=== PATIENT | male | born 1955 | race Caucasian/White ===

== ENCOUNTER 2022-04-05 11:24 | Emergency (ER) | payer OTHER, MEDICARE, SELFPAY ==
[2022-04-05 12:20] VITALS: BP 141/80; PULSE 63; RESP 16; TEMP 36.5; O2SAT 99
--- NOTE | 2022-04-05 13:26 | ED.URI ---
HPI - URI/Sore Throat General Chief Complaint: Upper Respiratory Infection Stated Complaint: sore throat,cough,chest tightness Time Seen by Provider: 04/05/22 13:27 Source: patient and RN notes reviewed Mode of arrival: ambulatory Limitations: no limitations History of Present Illness HPI Narrative: 66-year-old male presents concern for 3 day history of sore throat, nasal drainage, postnasal drainage, cough. Reports chest congestion. Reports he is taking Mucinex max with helps with his symptoms. Reports his had similar symptoms earlier in the week and tested negative for COVID. MD elicited complaint: cough Related Data Home Medications Medication Instructions Recorded Confirmed multivit,Ca,min-iron 8 mg-folic 1 tablet PO DAILY 10/24/21 04/05/22 acid 200 mcg-lycopene 600 mcg tablet (Centrum Men) omega-3 417 mg-dha 120 mg-epa-276 1 cap PO DAILY 10/24/21 04/05/22 mg-fish oil 600 mg-tumeric capsule clotrimazole-betamethasone 1 1 applic topical DIRECTED 04/05/22 04/05/22 %-0.05 % topical cream meloxicam 15 mg tablet 15 mg PO DIRECTED 04/05/22 04/05/22 Allergies Allergy/AdvReac Type Severity Reaction Status Date / Time Penicillins Allergy Mild Hives / Verified 04/05/22 13:13 Red Face erythromycin base Allergy Unknown Nausea and Verified 04/05/22 13:13 Vomiting Review of Systems Review of Systems: CONSTITUTIONAL: Reports malaise. Denies chills, sweats, or fever. EYES: Denies visual changes, redness, or discharge. ENT: Reports rhinorrhea, congestion, sore throat. Denies sinus pain, otalgia CARDIOVASCULAR: Denies chest pain, palpitations, or edema. RESPIRATORY: Reports cough and chest congestion. Denies dyspnea. GASTROINTESTINAL: Denies abdominal pain, nausea, vomiting, diarrhea SKIN: Denies rash or itching. MUSCULOSKELETAL: Denies myalgia. NEUROLOGIC: Denies headache. All systems reviewed & are unremarkable except as noted in HPI and below PMFSH Family History Family History Father Cancer Mother Cancer Social History Social History Smoking status: Never smoker Alcohol intake: never Substance use: never Comments At time of signature, agree with nursing past medical, surgical, social and family history. There is no relevant family history pertinent to the presenting complaint Exam Narrative: GENERAL: Nontoxic-appearing and in no acute distress. HEAD: Normocephalic EYES: PERRLA, conjunctivae clear ENT: Nares clear, turbinates edematous and erythematous, clear discharge. Mucous membranes moist. TM pearly zarate with sharp light reflex bilaterally; no tragal tenderness. Oropharynx not erythematous without lesions. Tonsils not enlarged and without exudate, no drooling, no hoarseness, no trismus, uvula midline. NECK: Supple. No lymphadenopathy CHEST: Clear to auscultation, breath sounds equal. No wheezing, rhonchi, rales, or stridor. No respiratory distress, speaks in full sentences. HEART: Regular rate and rhythm. No murmur heard. SKIN: Warm, dry, no rash. NEURO: Alert and oriented x3. PSYCH: Normal mood and affect Course Course Emergency Course: Patient is aware of diagnosis, understands and agrees to treatment plan. Anticipatory guidance given. Patient agrees to follow-up as directed and is aware of reasons to seek care at the emergency department. Portions of this record may have been created with voice recognition software Level of Care: Express Care Visit Vital Signs Vital signs: Vital Signs Temperature 97.7 F 04/05/22 12:20 Pulse Rate 63 04/05/22 12:20 Respiratory Rate 16 04/05/22 12:20 Blood Pressure 141/80 H 04/05/22 12:20 Pulse Oximetry 99 04/05/22 12:20 Temperature 97.7 F 04/05/22 12:20 Pulse Rate 63 04/05/22 12:20 Respiratory Rate 16 04/05/22 12:20 Blood Pressure 141/80 H 04/05/22 12:20 Pulse Oximetry 99 11
== END 2022-04-05 13:51 | disposition home or self-care (01) ==
PROVIDERS: Emergency Provider Nurse Practitioner; PCP Family Medicine
DX: J06.9 Acute upper respiratory infection, unspecified (principal); R05.9 Cough, unspecified; Z85.038 Personal history of other malignant neoplasm of large intestine; Z92.21 Personal history of antineoplastic chemotherapy
CPT/HCPCS: 87804; 99213; G0463

== ENCOUNTER 2023-01-10 13:08 | Outpatient (CLI) | payer OTHER, MEDICARE, SELFPAY | END 2023-01-10 13:09 | disposition home or self-care (01) | LOC: ANHAUDASC 13:09 | PROVIDERS: PCP Family Medicine; Visit Provider Family Medicine | DX: H90.42 Sensorineural hearing loss, unilateral, left ear, with unrestricted hearing on the contralateral side (principal); H90.11 Conductive hearing loss, unilateral, right ear, with unrestricted hearing on the contralateral side | CPT/HCPCS: 92557; 92567 ==

== ENCOUNTER 2023-02-13 00:22 | Day surgery (SDC) | payer OTHER, MEDICARE, SELFPAY ==
[2023-02-04 12:50] VITALS: BMI 29.6
--- NOTE | 2023-02-12 14:37 | PM.HPGS ---
History of Present Illness History of Present Illness Consent: Risks, benefits, and alternatives have been discussed and questions answered. Patient agrees to proceed with procedure. Chief complaint: hx colon ca Narrative: Obdulio Carreno is a 67 year old male With a history of colon cancer. He is here for colon cancer screening. His last colonoscopy was 5 years ago. Review of Systems Review of Systems: All systems reviewed & are unremarkable except as noted in HPI and below PMFSH Family History Family History Father Cancer Mother Cancer Social History Social History Smoking status: Never smoker Alcohol intake: never Substance use: never Substance use type: does not use Living arrangements: with family Spiritual care concerns: No Meds Home Medications and Allergies Home Medications Medication Instructions Recorded Confirmed Type multivit,Ca,min-iron 8 mg-folic 1 tablet PO DAILY 10/24/21 02/13/23 History acid 200 mcg-lycopene 600 mcg tablet (Centrum Men) omega-3 417 mg-dha 120 mg-epa-276 1 cap PO DAILY 10/24/21 02/13/23 History mg-fish oil 600 mg-tumeric capsule clotrimazole-betamethasone 1 1 applic topical DIRECTED 04/05/22 02/13/23 History %-0.05 % topical cream meloxicam 15 mg tablet 15 mg PO DIRECTED 04/05/22 02/13/23 History Allergies Allergy/AdvReac Type Severity Reaction Status Date / Time Penicillins Allergy Mild Hives / Verified 02/13/23 06:48 Red Face erythromycin base Allergy Unknown Nausea and Verified 02/13/23 06:48 Vomiting Exam Const: General: alert Orientation/consciousness: patient oriented x3 Resp: Auscultation: clear to auscultation bilaterally Cardio: Rhythm: regular rhythm GI: GI Palp: Yes Soft to palpation and No Tenderness to palpation present (GI) Neuro: General: patient oriented x3 Assessment and Plan Assessment and plan (1) Colon cancer screening: Code(s): Z12.11 - Encounter for screening for malignant neoplasm of colon Status: Acute Assessment and Plan: Colonoscopy with possible biopsy or polypectomy or cautery or injection of substances.
[2023-02-13 06:49] VITALS: BP 110/80; PULSE 58; RESP 16; TEMP 36.2; O2SAT 98; BMI 29.5
[2023-02-13] MEDS: LACTATED RINGERS 1,000 ML 150 ML IV CONT (07:02)
--- NOTE | 2023-02-13 07:55 | WPDANESEPPF ---
Anes - Initial Pre Proc Eval Procedure: Operation Date: 02/13/23 08:00 Proposed Procedures p Colonoscopy - Fabrizio Abbott MD Date/Time: 02/13/23 07:55 Surgeon: Fabrizio Abbott MD Pre Op Diagnosis: hx colon ca Patient Data Age: 67 Gender: M Height: 1.73 m Weight: 88 kg Last Vital Signs Temp 97.2 F L 02/13/23 06:49 Pulse 58 L 02/13/23 06:49 Resp 16 02/13/23 06:49 BP 110/80 02/13/23 06:49 Pulse Ox 98 02/13/23 06:49 O2 Del Method Room Air 02/13/23 06:49 Allergies Allergy/AdvReac Type Severity Reaction Status Date / Time Penicillins Allergy Mild Hives / Verified 02/13/23 06:48 Red Face erythromycin base Allergy Unknown Nausea and Verified 02/13/23 06:48 Vomiting Home Medications Medication Instructions Recorded Confirmed Type multivit,Ca,min-iron 8 mg-folic 1 tablet PO DAILY 10/24/21 02/13/23 History acid 200 mcg-lycopene 600 mcg tablet (Centrum Men) omega-3 417 mg-dha 120 mg-epa-276 1 cap PO DAILY 10/24/21 02/13/23 History mg-fish oil 600 mg-tumeric capsule clotrimazole-betamethasone 1 1 applic topical DIRECTED 04/05/22 02/13/23 History %-0.05 % topical cream meloxicam 15 mg tablet 15 mg PO DIRECTED 04/05/22 02/13/23 History Patient hx anesthesia problems: none Family hx anesthesia problems: none Results Review: All pre-operative results and documents have been reviewed as part of the pre-operative evaluation. [facility] Family History Family History Father Cancer Mother Cancer Social History Social History Smoking status: Never smoker Alcohol intake: never Substance use: never Substance use type: does not use Living arrangements: with family Spiritual care concerns: No Anes - Eval Final PreProcedure Day of Procedure 02/13/23 07:55 Patient weight: normal Heart: regular rate and rhythm Lungs: clear to auscultation Airway: Mallampati scale class II Neurological: alert and oriented Last oral intake: >/= 8 hours ASA classification: II Emergent: no Anesthetic plan: proceed Anesthesia type and monitoring: general GIVS and standard monitoring Results Review: All pre-operative results and documents have been reviewed as part of the pre-operative evaluation. Informed Consent: The patient's anesthetic plan and its attendant risks and benefits were discussed with the patient/family/POA. Questions were solicited and answers provided to the satisfaction of the patient/family/POA.
[2023-02-13 08:16] VITALS: BP 109/67; PULSE 57; RESP 18; O2SAT 94
[2023-02-13 08:26] VITALS: BP 128/78; PULSE 55; RESP 20; O2SAT 96
[2023-02-13 08:36] VITALS: BP 125/84; PULSE 56; RESP 16; O2SAT 97
== END 2023-02-13 08:50 | disposition home or self-care (01) ==
PROVIDERS: PCP Family Medicine; Visit Provider Internal Medicine Gastroenterology
PROC: 0DJD8ZZ Inspection of Lower Intestinal Tract, Via Natural or Artificial Opening Endoscopic (ICD-10-PCS; CPT 45378; principal; 2023-02-13 08:00)
DX: Z12.11 Encounter for screening for malignant neoplasm of colon (principal); K64.8 Other hemorrhoids; Z98.0 Intestinal bypass and anastomosis status; Z85.038 Personal history of other malignant neoplasm of large intestine; Z86.010 Personal history of colon polyps
CPT/HCPCS: G0105; J2704; J7120

== ENCOUNTER 2023-03-12 15:00 | Outpatient (RCR) | payer OTHER, MEDICARE, SELFPAY | END 2023-04-28 10:40 | disposition other institution (70) | LOC: ANHAUDASC 15:00 | PROVIDERS: PCP Family Medicine; Visit Provider Family Medicine | DX: Z46.1 Encounter for fitting and adjustment of hearing aid (principal) | CPT/HCPCS: 99199; V5261 ==

== ENCOUNTER 2023-08-05 08:05 | Emergency (ER) | payer OTHER, MEDICARE, SELFPAY ==
[2023-08-05 08:13] VITALS: BP 148/79; PULSE 76; RESP 16; TEMP 36.9; O2SAT 100
--- NOTE | 2023-08-05 08:16 | ED.URI ---
HPI - URI/Sore Throat General Stated Complaint: Cold Symptoms Time Seen by Provider: 08/05/23 08:16 Source: patient and RN notes reviewed Mode of arrival: ambulatory Limitations: no limitations History of Present Illness HPI Narrative: 67 y/o male presented for c/o sinus congestion, drainage, and cough with hoarse voice for about 10 days. Taking cetirizine and Mucinex for symptoms. Denies sob, wheezing, n/v/d/f/c. MD elicited complaint: cough Related Data Home Medications Medication Instructions Recorded Confirmed multivit,Ca,min-iron 8 mg-folic 1 tablet PO DAILY 10/24/21 02/13/23 acid 200 mcg-lycopene 600 mcg tablet (Centrum Men) omega-3 417 mg-dha 120 mg-epa-276 1 cap PO DAILY 10/24/21 02/13/23 mg-fish oil 600 mg-turmeric capsule clotrimazole-betamethasone 1 1 applic topical DIRECTED 04/05/22 02/13/23 %-0.05 % topical cream meloxicam 15 mg tablet 15 mg PO DIRECTED 04/05/22 02/13/23 Allergies Allergy/AdvReac Type Severity Reaction Status Date / Time Penicillins Allergy Mild Hives / Verified 02/13/23 06:48 Red Face erythromycin base Allergy Unknown Nausea and Verified 02/13/23 06:48 Vomiting Review of Systems Review of Systems: CONSTITUTIONAL: Denies malaise, chills, sweats, fever EYES: Denies visual changes, redness, or discharge ENT: Reports rhinorrhea, congestion, sinus pain, denies otalgia, sore throat CARDIOVASCULAR: Denies chest pain, palpitations, edema RESPIRATORY: Reports cough, post nasal drainage. Denies dyspnea GASTROINTESTINAL: Denies abdominal pain, nausea, vomiting, diarrhea SKIN: Denies rash or itching MUSCULOSKELETAL: Denies myalgia COUNT INCLUDES THE [facility] Past Medical History Medical History (Updated 08/05/23 @ 08:40 by Nina Wray APRN) Colon cancer Surgical History Surgical History (Updated 08/05/23 @ 08:40 by Nina Wray APRN) History of colon surgery Family History Family History Father Cancer Mother Cancer Social History Social History (Reviewed 08/05/23 @ 08:39 by SEBASTIÁN Sams Smoking status: Never smoker Alcohol intake: never Substance use: never Substance use type: does not use Living arrangements: with family Spiritual care concerns: No Exam Narrative: GENERAL: well-appearing, nontoxic no acute distress. HEAD: Normocephalic EYES: PERRLA, conjunctivae clear ENT: Mucous membranes moist. TM pearly zarate with dull light reflex bilaterally; no tragal tenderness. Hoarse voice. Oropharynx not erythematous without lesions or exudate, no drooling, no trismus, uvula midline. No tripod positioning, muffled voice, soft palate or pharyngeal wall bulging NECK: Supple. No lymphadenopathy CHEST: Clear to auscultation, breath sounds equal. No wheezing, rhonchi, rales, or stridor. No respiratory distress, speaks in full sentences. HEART: Regular rate and rhythm. No murmur heard. SKIN: Warm, dry, no rash. NEURO: Alert and oriented x3. PSYCH: Normal mood and affect Course Course Emergency Course: Patient is aware of diagnosis, understands and agrees to treatment plan. Anticipatory guidance given. Patient agrees to follow-up as directed and is aware of reasons to seek care at the emergency department. Portions of this record may have been created with voice recognition software Level of Care: Express Care Visit Vital Signs Vital signs: Vital Signs Temperature 98.4 F 08/05/23 08:13 Pulse Rate 76 08/05/23 08:13 Respiratory Rate 16 08/05/23 08:13 Blood Pressure 148/79 H 08/05/23 08:13 Pulse Oximetry 100 08/05/23 08:13 Oxygen Delivery Room Air 08/05/23 08:13 Temperature 98.4 F 08/05/23 08:13 Pulse Rate 76 08/05/23 08:13 Respiratory Rate 16 08/05/23 08:13 Blood Pressure 148/79 H 08/05/23 08:13 Pulse Oximetry 100 08/05/23 08:13 Oxygen Delivery Room Air 08/05/23 08:13 reviewed MDM - URI/Sore Throat MDM Narrative Medic
== END 2023-08-05 08:35 | disposition home or self-care (01) ==
PROVIDERS: Emergency Provider Nurse Practitioner Family; PCP Family Medicine
DX: J06.9 Acute upper respiratory infection, unspecified (principal); Z85.038 Personal history of other malignant neoplasm of large intestine
CPT/HCPCS: 99213; G0463

== ENCOUNTER 2024-02-20 08:14 | Emergency (ER) | payer OTHER, MEDICARE, SELFPAY ==
[2024-02-20 08:35] VITALS: BP 126/78; PULSE 67; RESP 16; TEMP 36.6; O2SAT 97
--- NOTE | 2024-02-20 08:49 | ED.SKABFB ---
HPI - Skin/Abscess/Foreign Bdy General Chief complaint: Skin/Abscess/Foreign Body Stated complaint: rash Time Seen by Provider: 02/20/24 08:50 Source: patient Mode of arrival: ambulatory Limitations: no limitations History of Present Illness HPI narrative: 68-year-old male presented for complaint of rash to the right buttock which has been present intermittently for over 1 year. He uses clotrimazole betamethasone cream which provides temporary improvement in symptoms. 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 Denies lip, tongue, or throat swelling, shortness of breath or wheezing. Denies changes to soap, detergent, lotion, or any other exposures. No one else in the house or any contacts with similar symptoms. Related Data Home Medications Medication Instructions Recorded Confirmed clotrimazole-betamethasone 1 1 applic topical DIRECTED 04/05/22 02/20/24 %-0.05 % topical cream Allergies Allergy/AdvReac Type Severity Reaction Status Date / Time Penicillins Allergy Mild Hives / Verified 08/05/23 09:06 Red Face erythromycin base Allergy Unknown Nausea and Verified 08/05/23 09:06 Vomiting Review of Systems Review of Systems: CONSTITUTIONAL: Denies body aches, fever, chills, or sweats. EYES: Denies visual changes, redness, or discharge. ENT: Denies rhinorrhea, congestion CARDIOVASCULAR: Denies chest pain, palpitations, or edema. RESPIRATORY: Denies cough or dyspnea. GASTROINTESTINAL: Denies abdominal pain, nausea, vomiting, or diarrhea. SKIN: reports intermittent rash right buttock MUSCULOSKELETAL: Denies back pain, joint pain, or myalgia. NEUROLOGIC: Denies headache, numbness, tingling, or weakness. [facility] Past Medical History Medical History Colon cancer Surgical History Surgical History History of colon surgery Family History Family History Father Cancer Mother Cancer Social History Social History Smoking status: Never smoker Alcohol intake: never Substance use: never Substance use type: does not use Living arrangements: with family Spiritual care concerns: No Comments At time of signature, I have reviewed and agree with nursing past medical, surgical, social and family history unless otherwise noted. Please see nursing chart for further information. There is no relevant family history pertinent to the presenting complaint Exam Narrative: GENERAL: Well-appearing ENT: Mucous membranes moist. Oropharynx without edema, erythema or lesions. NECK: Supple. CHEST: Clear to auscultation. HEART: Regular rate and rhythm. SKIN: Warm, dry. Scattered erythematous round,flat, dry lesions noted to right buttock and upper posterior thigh, and medial left buttock; most lesions <0.5cm no drainage, nontender. NEURO: Alert and oriented x3. Course Course Emergency Course: Patient is aware of diagnosis, understands and agrees to treatment plan. Anticipatory guidance given. Patient agrees to follow-up as directed and is aware of reasons to seek care at the emergency department. Portions of this record may have been created with voice recognition software Level of Care: Express Care Visit Vital Signs Vital signs: Vital Signs Temperature 97.9 F 02/20/24 08:35 Pulse Rate 67 02/20/24 08:35 Respiratory Rate 16 02/20/24 08:35 Blood Pressure 126/78 02/20/24 08:35 Pulse Oximetry 97 02/20/24 08:35 Temperature 97.9 F 02/20/24 08:35 Pulse Rate 67 02/20/24 08:35 Respiratory Rate 16 02/20/24 08:35 Blood Pressure 126/78 02/20/24 08:35 Pulse Oximetry 97 02/20/24 08:35 Reviewed MDM - Skin/Abscess/Foreign Bdy MDM Narrative Medical decision making narrative: Discussed physical exam findings, will refill his previously pre
== END 2024-02-20 09:07 | disposition home or self-care (01) ==
PROVIDERS: Emergency Provider Nurse Practitioner Family
DX: L30.9 Dermatitis, unspecified (principal); Z85.038 Personal history of other malignant neoplasm of large intestine
CPT/HCPCS: 99213; G0463

== ENCOUNTER 2024-03-27 10:34 | Emergency (ER) | payer OTHER, MEDICARE, SELFPAY ==
--- NOTE | ~2024-03-27 | CT_ITS ---
EXAMINATION: CT abdomen pelvis w con DATE: 03/27/2024 11:51 INDICATION: Midline low abdominal pain. TECHNIQUE: Computed tomography (CT) of the abdomen and pelvis was performed with 100 mL Omnipaque 350 intravenous contrast. Automated exposure control and iterative reconstruction technique were employe d. The dose-length product was 589.06 mGy-cm. COMPARISON: None. FINDINGS: The visualized portions of the lung bases demonstrate mild atelectasis. No pleural effusion . The heart size is normal. No pericardial effusion. The liver, gallbladder, spleen, pancreas, adrena l glands, and kidneys are normal. The prostate is moderately enlarged. There is a left inguinal herni a containing fat. There are changes of right hemicolectomy. There are no dilated loops of bowel. Ther e are no pathologically enlarged lymph nodes. There is no free intraperitoneal fluid. There is mild l umbar spondylosis. IMPRESSION: 1. Left inguinal hernia containing fat. Reviewed, dictated and finalized at location A. FAMILY
[2024-03-27 10:37] VITALS: BP 176/72; PULSE 63; RESP 16; TEMP 35.8; O2SAT 99
--- NOTE | 2024-03-27 10:49 | PC.NURSE ---
Patient unable to get urine sample at this time, declines straight cath and reports that he will attempt later.
[2024-03-27 10:52] LABS: Basophils Absolute Auto 0.1 K/mm3 (0.0-0.1); Basophils Percent Auto 0.7 % (0.2-1.2); Eosinophils Absolute Auto 0.1 K/mm3 (0-0.3); Eosinophils Percent Auto 0.8 % (0-4.4); Hemoglobin 15.5 g/dL (14.0-18.0); Immature Granulocyte Absolute 0.01 K/mm3 (0.00-0.031); Immature Granulocyte Percent A 0.1 % (0-0.5); Lymphocytes Absolute Auto 2.88 K/mm3 (0.9-3.2); Lymphocytes Percent Auto 39.8 % (18.3-44.2); Mean Corpuscular Hemoglobin 27.3 pg (26-34); Mean Corpuscular Volume 82.7 fl (80-100); Mean Platelet Volume 10.5 fl (7.4-10.4); Monocytes Absolute Auto 0.7 K/mm3 (0.1-0.6); Monocytes Percent Auto 9.1 % (2.6-8.5); Neutrophils Absolute Auto 3.6 K/mm3 (1.3-6.7); Neutrophils Percent Auto 49.5 % (45.5-73.1); Platelet Count Result 231 k/mm3 (150-375); Red Blood Count 5.68 M/mm3 (4.6-6.20); Red Cell Distribution Width 13.6 % (11.5-14.5); White Blood Count 7.2 K/mm3 (4.5-10.0)
[2024-03-27 11:01] LABS: Alanine Aminotransferase 27 U/L (6-50); Albumin Level 4.6 g/dL (3.5-5.1); Alkaline Phosphatase 55 U/L (38-126); Anion Gap 9 mmol/L (4-12); Aspartate Amino Transferase 40 U/L (17-59); Bilirubin,Total 1.3 mg/dL (0.2-1.3); Blood Urea Nitrogen 24 mg/dL (9-20); Calcium 9.2 mg/dL (8.4-10.2); Carbon Dioxide 30 mmol/L (22-30); Chloride 102 mmol/L (98-107); Estimated CRCL calculation 67 ml/min; Estimated Glomerular Filt Rate > 60; Glucose 97 mg/dL (65-110); Lipase 64 U/L (23-300); Potassium 4.5 mmol/L (3.4-5.0); Sodium 141 mmol/L (137-145)
[2024-03-27 11:42] LABS: Add Urine Microscopic? NO; Appearance Urine Clear (Clear); Bilirubin Urine Negative (Negative); Blood Urine Negative (Negative); Color Urine Yellow (Yellow); Glucose Urine UA Negative (Negative); Ketones Urine Negative (Negative); Leukocyte Esterase Ur Negative LEU/UL (Negative); Nitrate Urine Negative (Negative); Protein Urine Negative (Negative); Urobilinogen Urine 0.2 mg/dL (<2.0); pH Urine 5.5 (5.0-9.0)
--- NOTE | 2024-03-27 12:47 | ED_ITS ---
HPI - Abdominal Pain General Chief Complaint: Abdominal Pain Stated Complaint: pain abdomen, medial lower Time Seen by Provider: 03/27/24 10:47 History of Present Illness HPI narrative: Patient is a 68-year-old male who presents ER with lower abdominal pain. He is doing a sit-up last night when he had a tearing pain for 20 seconds. It is at the lower aspect of his laparotomy scar. No numbness or tingling. No difficulty with bowel movements. He is concerned he may have a hernia. Related Data Home Medications Medication Instructions Recorded Confirmed clotrimazole-betamethasone 1 1 applic topical DIRECTED 04/05/22 02/20/24 %-0.05 % topical cream Allergies Allergy/AdvReac Type Severity Reaction Status Date / Time Penicillins Allergy Mild Hives / Verified 03/27/24 10:35 Red Face erythromycin base Allergy Unknown Nausea and Verified 03/27/24 10:35 Vomiting Review of Systems Review of Systems: All systems reviewed & are unremarkable except as noted in HPI and below Constitutional: Constitutional: Reports no additional constitutional complaints Cardiovascular: Cardiovascular: Reports no additional cardiovascular complaints Respiratory: Respiratory: Reports no additional respiratory complaints Gastrointestinal: Gastrointestinal: Reports abdominal pain, Denies diarrhea, Denies nausea and Denies vomiting Genitourinary: Genitourinary: Reports no additional male genitourinary complaints [facility] Past Medical History Medical History Colon cancer Surgical History Surgical History History of colon surgery Family History Family History Father Cancer Mother Cancer Social History Social History Smoking status: Never smoker Alcohol intake: never Substance use: never Substance use type: does not use Living arrangements: with family Spiritual care concerns: No Exam Narrative: GENERAL: Well-appearing, well-nourished, and in no acute distress. HEAD: Normocephalic, atraumatic. ENT: Mucous membranes moist. CHEST: Clear to auscultation. No respiratory distress. HEART: Regular rate and rhythm. Normal peripheral pulses. ABDOMEN: Soft, nontender, nondistended. EXTREMITIES: Normal range of motion. No edema. SKIN: Warm, dry, no rash. NEURO: Alert and oriented x3. PSYCH: Normal mood and affect. Course Course Emergency Course: Patient resting comfortably. Informed of results. Discharge home. Vital Signs Vital signs: Vital Signs Temperature 96.5 F L 03/27/24 10:37 Pulse Rate 63 03/27/24 10:37 Respiratory Rate 16 03/27/24 10:37 Blood Pressure 176/72 H 03/27/24 10:37 Pulse Oximetry 99 03/27/24 10:37 Oxygen Delivery Room Air 03/27/24 10:37 Temperature 96.5 F L 03/27/24 10:37 Pulse Rate 63 03/27/24 10:37 Respiratory Rate 16 03/27/24 10:37 Blood Pressure 176/72 H 03/27/24 10:37 Pulse Oximetry 99 03/27/24 10:37 Oxygen Delivery Room Air 03/27/24 10:37 MDM - Abdominal Pain Lab Data 03/27/24 10:47 03/27/24 10:47 Labs: Lab Results 03/27/24 03/27/24 Range/Units 10:47 11:37 WBC 7.2 (4.5-10.0) K/mm3 RBC 5.68 (4.6-6.20) M/mm3 Hgb 15.5 (14.0-18.0) g/dL Hct 47.0 (42.0-52.0) % MCV 82.7 (80-100) fl MCH 27.3 (26-34) pg MCHC 33.0 (32-36) g/dl RDW 13.6 (11.5-14.5) % Plt Count 231 (150-375) k/mm3 MPV 10.5 H (7.4-10.4) fl Immature Gran % (Auto) 0.1 (0-0.5) % Neut % (Auto) 49.5 (45.5-73.1) % Lymph % (Auto) 39.8 (18.3-44.2) % [place] % (Auto) 9.1 H (2.6-8.5) % Eos % (Auto) 0.8 (0-4.4) % Baso % (Auto) 0.7 (0.2-1.2) % Lymph # (Auto) 2.88 (0.9-3.2) K/mm3 [place] # (Auto) 0.7 H (0.1-0.6) K/mm3 Eos # (Auto) 0.1 (0-0.3) K/mm3 Baso # (Auto) 0.1 (0.0-0.1) K/mm3 Abs Immat Gran (auto) 0.01 (0.00-0.031) K/mm3 Absolute Neuts (auto) 3.6 (1.3-6.7) K/mm3 Absolute Nucleated RBC 0.000 (0.0-0.012) K/mm3 Nucleated RBC % 0.0 (0.0-0.2) % Sodium 141 (137-145) mmol/L Potassium 4.5 (3.4-5.0) mmol/L Chloride 102 (98-107) mmol/L Carbon Dioxide 30 (22-30) mmol/L Anion Gap 9 (4-12) mmol/L BUN 24 H (9-20) mg/dL Creatinine 1.00 (0.7-1.3) mg/dL Estim Creat Clear Calc 67 ml/min Estimated GFR > 60 (59 - ) Glucose 97 (65-110) mg/dL Calcium 9.2 (8.4-10.2) mg/dL Total Bilirubin 1.3 (0.2-1.3) mg/dL AST 40 (17-59) U/L ALT 27 (6-50) U/L Alkaline Phosphatase 55 (38-126) U/L Total Protein 8.0 (6.3-8.2) g/dL Albumin 4.6 (3.5-5.1) g/dL Lipase 64 (23-300) U/L Urine Color Yellow (Yellow) Urine Appearance Clear (Clear) Urine pH 5.5 (5.0-9.0) Ur Specific [place] 1.020 (1.001-1.035) Urine Protein Negative (Negative) mg/dL Urine Glucose (UA) Negative (Negative) mg/dL Urine Ketones Negative (Negative) mg/dL Ur Blood (Man) Negative (Negative) Urine Nitrate Negative (Negative) Urine Bilirubin Negative (Negative) Urine Urobilinogen 0.2 (<2.0) mg/dL Leukocyte Esterase Rfl Negative (Negative) DHRUV/UL Imaging Data Radiologist's impression: ITS Impressions Abdomen/Pelvis CT 03/27/24 11:53 IMPRESSION: 1. Left inguinal hernia containing fat. Discharge Plan Discharge Clinical Impression: Hernia, inguinal, left Patient Disposition: Home, Self-Care Condition: Stable Instructions: Inguinal Hernia (ED) Additional Instructions: You have a small fat containing inguinal hernia on the left side. If it causes increased pain or discomfort you may want to have it surgically repaired. Prescriptions: No Action clotrimazole-betamethasone 1-0.05 % cream 1 applic topical BID 28 Days Qty: 45 0RF Rx Instructions: Continue using the cream for one week after symptoms resolve. clotrimazole-betamethasone 1-0.05 % cream 1 applic TOPICAL DIRECTED Follow-up/Referrals: Otis Chambers MD [Physician] - 1 Week PHYSICIAN,[facility]ER [Primary Care Provider] -
[2024-03-27 14:34] VITALS: BP 142/83; PULSE 57; RESP 18; O2SAT 98
== END 2024-03-27 14:35 | disposition home or self-care (01) ==
PROVIDERS: Emergency Provider Emergency Medicine
DX: K40.90 Unilateral inguinal hernia, without obstruction or gangrene, not specified as recurrent (principal); Z85.038 Personal history of other malignant neoplasm of large intestine
CPT/HCPCS: 36415; 74177; 80053; 81003; 83690; 85025; 99284; Q9967

== ENCOUNTER 2024-12-16 07:56 | Outpatient (CLI) | payer OTHER, MEDICARE, SELFPAY ==
--- OUTSIDE RECORDS SUMMARY | 2024-12-16 08:00 | XMS_ITS | Clinical Summary ---
Author Organization [facility] Address [address] [place] [id number] Care Team Providers Care Legal Clerk Name Role Phone Unavailable Primary Care Provider Unavailabl e Social History Tobacco Use Types Packs/Day Years Used Date Smoking Tobacco: Never Assessed Sex and Gender Information Value Date Recorded Sex Assigned at Not on file Legal Sex Male 7:09 PM CDT Gender Identity Not on file Sexual Orientation Not on file Plan of Treatment Health Maintenance Due Date Last Done Comments Colorectal Cancer Screening Colonoscopy (10 Years) 1954 Hepatitis C 1972 DTaP, Tdap and Td Vaccines ( 1 - Tdap) 1973 Pneumococcal Vaccine: 50+ Ye ars (1 of 1 - PCV) 2004 Zoster Vaccines (1 of 2) 2004 COVID-19 Vaccine ( - 2023-2 5 season) 2024 RSV Immunization or 60+ Years (1 - 1-dose 75+ series) 2029 Meningococcal B Vaccine Aged Out No l onger eligible based on patient's age to complete this topic Meningococcal Vaccine Aged Out No enrique latrice eligible based on patient's age to complete this topic RSV Immunizations Under 20 Months Aged Out No longer eligible based on patient's age to complete this topic
== END 2024-12-16 07:57 | disposition home or self-care (01) ==
LOC: ANHAUDASC 07:57
PROVIDERS: PCP Family Medicine; Visit Provider Family Medicine
DX: H90.3 Sensorineural hearing loss, bilateral (principal); Z97.4 Presence of external hearing-aid
CPT/HCPCS: 92557; 92567